=== PATIENT | female | born 1960 | race Caucasian/White ===

== ENCOUNTER → 2017-02-24 | Outpatient (CLI) | payer BC ==
[2014-05-26 10:27] VITALS: BP 110/60
== END ==
LOC: RT 08:30
PROVIDERS: ATTEND Family Medicine
DX: R07.89 Other chest pain (principal); E11.9 Type 2 diabetes mellitus without complications; E78.4 Other hyperlipidemia; R94.31 Abnormal electrocardiogram [ECG] [EKG]
CPT/HCPCS: 78452; 93017; A9502

== ENCOUNTER → 2017-02-27 | Outpatient (CLI) | payer BC ==
[2014-05-26 10:27] VITALS: BP 110/60
== END ==
LOC: RAD 15:26
PROVIDERS: ATTEND Family Medicine
DX: R07.89 Other chest pain (principal)
CPT/HCPCS: 93306